=== PATIENT | male | born 1955 | race Caucasian/White ===

== ENCOUNTER 2023-02-13 19:51 | Inpatient (IN) | payer MEDICARE, BC ==
[2023-02-13] MEDS ORDERED: NOREPINEPHRINE 8 MG/250 ML-D5W 250 ML ONE ×2 (20:06→20:09)
[2023-02-13] MEDS ORDERED: fentaNYL 50 mcg/mL 1 mL Vial ONE (20:26)
[2023-02-13 20:27] LABS: Analyzer IN Cardio ER; Base Excess (BEa) -19.3 mEq/L (-2.0 to +3.0); CO2 Tension 59.4 mmHg (35.0-45.0); Calcium, Ionized (arterial) 0.98 mmol/L (1.12-1.30); Carboxyhemoglobin (COHb) 0.2 gm% (0.0-3.0); Hemoglobin (Hb) 9.6 g/dL (14.0-18.0); O2 Tension (PaO2), arterial 446.1 mmHg (> 80.0); Potassium - ABG Lab 3.89 mmol/L (3.70-5.30)
[2023-02-13 20:29] LABS: Actual Bicarbonate (HCO3a) 12.4 mEq/L (22-28); Puncture Site LBA; pH, Arterial 6.94 (7.35-7.45)
[2023-02-13 20:33] LABS: ALT (SGPT) 107 U/L (8-55); AST (SGOT) 119 U/L (5-34); Albumin 2.5 g/dL (3.4-4.8); Alkaline Phosphatase 175 U/L (40-110); Anion Gap 35 mmol/L (10-20); BUN (Urea Nitrogen) 28 mg/dL (8.4-25.7); Bilirubin, Total 0.2 mg/dL (0.2-1.2); Calc. Creatinine Clearance 0 mL/min (70-130); Carbon Dioxide 13 mmol/L (23-31); Chloride 97 mmol/L (98-107); Estimated GFR 32; Globulin 1.8 g/dL (2.4-3.5); Glucose 287 mg/dL (80-115); Potassium 4.1 mmol/L (3.5-5.1); Protein, Total 4.3 g/dL (5.8-8.1); Sodium 141 mmol/L (136-145)
[2023-02-13] MEDS ORDERED: Propofol 1,000 MG/100 ML VIAL IV ONE ×2 (20:34→20:35)
[2023-02-13] MEDS ORDERED: Vecuronium 10 MG VIAL ONE (20:44)
[2023-02-13] MEDS ORDERED: Fentanyl CADD 100 ML IV SCH ×2 (20:45→23:15)
[2023-02-13 20:46] LABS: Hemoglobin 9.8 g/dL (14.0-18.0); Mean Corpuscular HGB CONC 32.7 g/dL (32.0-36.0); Mean Corpuscular Hemoglobin 39.1 pg (27.0-31.0); RBC Distribution Width 15.5 % (11.5-14.5); White Blood Cell (WBC) Count 4.3 10x3/uL (4.8-10.8)
[2023-02-13] MEDS ORDERED: Sterile Water 10 ML ONE (20:46)
[2023-02-13] MEDS ORDERED: Fosphenytoin Sodium 1,500 MG in Sodium Chloride 0.9% 100 ML IVPB SCH (21:00)
[2023-02-13 21:06] LABS: Bilirubin Negative (Negative); Blood, Urine Negative (Negative); Clarity Clear (Clear); Glucose, Urine (Dipstick) Normal (Negative); Ketone, Urine Negative (Negative); Leukocyte Negative Leu/uL (Negative); Nitrite Negative (Negative); Protein, Urine (Dipstick) 20 mg/dL (Neg-Trace); Urobilinogen Normal mg/dL (Less than 2); pH, Urine 6.5 (5.0-9.0)
[2023-02-13 21:18] LABS: Anisocytosis SLIGHT = 6-15 cells (100X) (0-5/hpf); Band 1 % (5-11); Eosinophils 2 % (0-10); Lymphocytes 44 % (21-51); MDiff Complete? YES; Macrocytosis MODERATE=16-30 cells (100X) (0-5/hpf); Mean Platelet Volume 9.8 fL (7.4-10.4); Monocytes 5 % (0-10); Neutrophil 48 % (42-75); Nucleated RBC 8 % (0); Platelet Count 97 10x3/uL (130-400); Platelet Morphology Comment Appears Decreased; Polychromasia MODERATE = 3-4 cells (100X) (0-2/hpf); Stomatocytes SLIGHT = 2-5 cells (100X) (0-1/hpf); Target Cells SLIGHT = 2-5 cells (100X) (0-1/hpf)
[2023-02-13 21:34] LABS: Acetaminophen Less than 10.0 mcg/mL (10.0-30.0); Alcohol Less than 10 mg/dL (Less than 10); Salicylate Less than 8.0 mg/dL (15.0-30.0)
[2023-02-13] MEDS ORDERED: Sodium Bicarb 50 MEQ/50 ML VIAL ONE (22:35)
[2023-02-13] MEDS ORDERED: Electrolyte Replacement Protocol 1 EACH IVPB SCH (23:04)
[2023-02-13] MEDS ORDERED: NOREPINEPHRINE 8 MG/250 ML-D5W 250 ML IVPB PRN (23:04)
[2023-02-13 23:06] LABS: SARS-CoV-2 NAA Rapid Test Not Detected (NotDetected)
[2023-02-13 23:10] LABS: Troponin I 1.255 ng/mL (< 0.028)
[2023-02-13] MEDS ORDERED: Propofol 1,000 MG/100 ML VIAL IV PRN (23:15)
[2023-02-13] MEDS ORDERED: Fentanyl BOLUS 250 ML IVPB PRN (23:15)
[2023-02-13] MEDS ORDERED: Dextrose 5 %-0.45 % NaCl 1,000 ML IV SCH (23:15)
[2023-02-13] MEDS ORDERED: Ventilator Sedation Protocol 1 EACH FS SCH (23:15)
[2023-02-13] MEDS ORDERED: DISCONTINUE PREVIOUS NARCOTIC PAIN MEDICATIONS AND BENZODIAZEPINES FS SCH (23:15)
[2023-02-13] MEDS ORDERED: Dextrose 50% Abboject 50 ML SYRINGE IVP PRN (23:15)
[2023-02-13] MEDS ORDERED: Dextrose 5% in Water 1,000 ML IV PRN (23:15)
[2023-02-13] MEDS ORDERED: Propofol BOLUS 1,000 MG/100 ML VIAL IV PRN (23:15)
[2023-02-13 23:30] LABS: Hemoglobin A1c 4.9 % (4.0-6.0)
[2023-02-13] MEDS ORDERED: Heparin 10,000 UNITS/ 10 ML VIAL SLOW IVP SCH (23:30)
[2023-02-13] MEDS ORDERED: Heparin 25,000 units/D5W 500 ML IVPB SCH (23:30)
[2023-02-13 23:32] LABS: INR-International Normal Ratio 1.4; Prothrombin Time 17.4 sec (12.0-14.7)
[2023-02-13 23:33] LABS: PTT 33.6 sec (22.9-36.1)
[2023-02-14 00:09] LABS: Hemoglobin 11.1 g/dL (14.0-18.0); Platelet Count 118 10x3/uL (130-400)
[2023-02-14 00:26] LABS: Lactic Acid 7.3 mmol/L (0.5-2.2)
[2023-02-14] MEDS: HumaLOG 300 UNITS/3 ML VIAL SC PRN ×2 (00:46→06:28)
[2023-02-14 00:50] VITALS: BMI 30.4
[2023-02-14 00:55] LABS: Amphetamine Not Detected (NotDetected); Barbiturates Screen Not Detected (NotDetected); Benzodiazepine Screen Not Detected (NotDetected); Cocaine Metabolite Screen Not Detected (NotDetected); Methadone Not Detected (NotDetected); Methamphetamine Not Detected (NotDetected); Opiate Screen Not Detected (NotDetected); Oxycodone Screen Not Detected (NotDetected); Phencyclidine (PCP) Not Detected (NotDetected); THC/Cannabinoid Screen Not Detected (NotDetected); Tricyclic Screen Not Detected (NotDetected)
[2023-02-14] MEDS: Lactated Ringer's 1,000 ML IV SCH ×2 (02:05→18:32)
[2023-02-14 03:41] LABS: Hemoglobin 11.3 g/dL (14.0-18.0); Mean Corpuscular HGB CONC 32.7 g/dL (32.0-36.0); Mean Corpuscular Hemoglobin 38.3 pg (27.0-31.0); Mean Platelet Volume 8.8 fL (7.4-10.4); Platelet Count 136 10x3/uL (130-400); RBC Distribution Width 15.6 % (11.5-14.5); Red Blood Cell (RBC) Count 2.95 mill/uL (4.70-6.10); White Blood Cell (WBC) Count 7.8 10x3/uL (4.8-10.8)
[2023-02-14 04:00] LABS: Lactic Acid 9.4 mmol/L (0.5-2.2)
[2023-02-14 04:05] LABS: Anisocytosis SLIGHT = 6-15 cells (100X) (0-5/hpf); Band 4 % (5-11); Large Platelets SLIGHT; Lymphocytes 12 % (21-51); MDiff Complete? YES; Macrocytosis MODERATE=16-30 cells (100X) (0-5/hpf); Monocytes 5 % (0-10); Neutrophil 79 % (42-75); Nucleated RBC 2 % (0); Platelet Clumps SLIGHT; Platelet Morphology Comment Appears Adequate; Polychromasia MODERATE = 3-4 cells (100X) (0-2/hpf); Target Cells SLIGHT = 2-5 cells (100X) (0-1/hpf)
[2023-02-14 04:06] LABS: ALT (SGPT) 190 U/L (8-55); AST (SGOT) 268 U/L (5-34); Albumin 2.6 g/dL (3.4-4.8); Alkaline Phosphatase 241 U/L (40-110); Anion Gap 21 mmol/L (10-20); BUN (Urea Nitrogen) 33 mg/dL (8.4-25.7); Bilirubin, Total 0.7 mg/dL (0.2-1.2); Calc. Creatinine Clearance 32 mL/min (70-130); Calcium 6.9 mg/dL (7.8-10.44); Carbon Dioxide 22 mmol/L (23-31); Chloride 101 mmol/L (98-107); Estimated GFR 25; Glucose 222 mg/dL (80-115); Potassium 3.4 mmol/L (3.5-5.1); Protein, Total 4.6 g/dL (5.8-8.1); Sodium 141 mmol/L (136-145)
[2023-02-14 04:12] LABS: Troponin I 4.165 ng/mL (< 0.028)
[2023-02-14] MEDS ORDERED: Calcium Gluc 4.6 MEQ/10 ML (100 MG/ML) SLOW IVP ONE (04:13)
[2023-02-14] MEDS ORDERED: CALCIUM GLUC 1 GM/NS 50 ML 1 GM in Premix Bag 1 BAG IVPB SCH (04:30)
[2023-02-14 04:40] LABS: Magnesium 1.3 mg/dL (1.6-2.6); Phosphorus 6.3 mg/dL (2.3-4.7)
[2023-02-14] MEDS ORDERED: Electrolyte Replacement Protocol 1 EACH IVPB SCH (04:45)
[2023-02-14] MEDS: Albumin 25% 25 GM/100 ML BOT IVPB SCH ×4 (06:27→23:58)
[2023-02-14] MEDS ORDERED: Magnesium 2 GM/50 ML(in water) 2 GM in Premix Bag 1 BAG IVPB SCH (06:30)
[2023-02-14 07:03] LABS: PTT Greater than 250.0 sec (22.9-36.1)
[2023-02-14 07:19] LABS: Actual Bicarbonate (HCO3a) 21.2 mEq/L (22-28); Base Excess (BEa) -5.2 mEq/L (-2.0 to +3.0); Calcium, Ionized (arterial) 0.95 mmol/L (1.12-1.30); Carboxyhemoglobin (COHb) 1.1 gm% (0.0-3.0); Hemoglobin (Hb) 12.6 g/dL (14.0-18.0); Potassium - ABG Lab 3.54 mmol/L (3.70-5.30); pH, Arterial 7.29 (7.35-7.45)
[2023-02-14 07:38] LABS: Puncture Site LRA
[2023-02-14] MEDS ORDERED: Vancomycin 1 GM in Premix Bag 1 BAG IVPB SCH (09:00)
[2023-02-14] MEDS ORDERED: Vancomycin Dose by Levels Sliding Scale (Wt 71-99) FS SCH (09:30)
[2023-02-14] MEDS: levETIRAcetam 500 MG/5 ML VIAL SLOW IVP SCH ×2 (10:14→21:44)
[2023-02-14] MEDS: Pantoprazole 40 MG VIAL IVP SCH (10:15)
[2023-02-14] MEDS: Cefepime 1 GM in Sodium Chloride 0.9% 100 ML IVPB SCH ×2 (10:15→21:43)
[2023-02-14] MEDS ORDERED: Vancomycin 1.5 GRAM/300 ML BAG 1.5 GM in Premix Bag 1 BAG IVPB SCH (10:30)
[2023-02-14 11:25] LABS: PTT Greater than 250.0 sec (22.9-36.1)
[2023-02-14] MEDS: Acetaminophen 650 MG Suppository PR PRN (15:58)
[2023-02-14] MEDS: Artificial Tear Sol 15 ML BOT EA EYE PRN (23:53)
[2023-02-15 04:43] LABS: INR-International Normal Ratio 1.7; Prothrombin Time 20.6 sec (12.0-14.7)
[2023-02-15 04:44] LABS: PTT 41.8 sec (22.9-36.1)
[2023-02-15 04:53] LABS: ALT (SGPT) 90 U/L (8-55); AST (SGOT) 138 U/L (5-34); Albumin 3.6 g/dL (3.4-4.8); Alkaline Phosphatase 92 U/L (40-110); Anion Gap 19 mmol/L (10-20); BUN (Urea Nitrogen) 45 mg/dL (8.4-25.7); Bilirubin, Total 0.7 mg/dL (0.2-1.2); Calc. Creatinine Clearance 23 mL/min (70-130); Calcium 7.1 mg/dL (7.8-10.44); Carbon Dioxide 24 mmol/L (23-31); Chloride 100 mmol/L (98-107); Estimated GFR 17; Globulin 1.2 g/dL (2.4-3.5); Glucose 109 mg/dL (80-115); Potassium 4.1 mmol/L (3.5-5.1); Protein, Total 4.8 g/dL (5.8-8.1); Sodium 139 mmol/L (136-145)
[2023-02-15] MEDS: Lactated Ringer's 1,000 ML IV SCH ×3 (05:06→23:38)
[2023-02-15 05:22] LABS: Band 38 % (5-11); Hemoglobin 6.8 g/dL (14.0-18.0); Lymphocytes 15 % (21-51); MDiff Complete? YES; Macrocytosis MODERATE=16-30 cells (100X) (0-5/hpf); Mean Corpuscular HGB CONC 33.6 g/dL (32.0-36.0); Mean Corpuscular Hemoglobin 38.3 pg (27.0-31.0); Mean Platelet Volume 9.3 fL (7.4-10.4); Metamyelocyte 3 % (0-0); Monocytes 1 % (0-10); Myelocyte 1 % (0-0); Neutrophil 42 % (42-75); Nucleated RBC 8 % (0); Platelet Count 61 10x3/uL (130-400); Platelet Morphology Comment Appears Decreased; RBC Distribution Width 15.9 % (11.5-14.5); Red Blood Cell (RBC) Count 1.76 mill/uL (4.70-6.10); White Blood Cell (WBC) Count 3.4 10x3/uL (4.8-10.8)
[2023-02-15] MEDS: Artificial Tear Sol 15 ML BOT EA EYE PRN ×4 (08:00→14:00)
[2023-02-15 08:29] LABS: INR-International Normal Ratio 1.8; Prothrombin Time 21.2 sec (12.0-14.7)
[2023-02-15 08:30] LABS: PTT 40.2 sec (22.9-36.1)
[2023-02-15 09:42] LABS: Hemoglobin 6.8 g/dL (14.0-18.0); Mean Corpuscular HGB CONC 33.8 g/dL (32.0-36.0); Mean Corpuscular Hemoglobin 38.8 pg (27.0-31.0); Mean Platelet Volume 9.5 fL (7.4-10.4); Platelet Count 55 10x3/uL (130-400); RBC Distribution Width 16.1 % (11.5-14.5); Red Blood Cell (RBC) Count 1.74 mill/uL (4.70-6.10); White Blood Cell (WBC) Count 3.9 10x3/uL (4.8-10.8)
[2023-02-15] MEDS: levETIRAcetam 500 MG/5 ML VIAL SLOW IVP SCH ×2 (09:43→20:31)
[2023-02-15] MEDS: Acetaminophen 325 MG TAB PO PRN ×2 (09:44→17:41)
[2023-02-15] MEDS: Pantoprazole 40 MG VIAL IVP SCH (09:51)
[2023-02-15] MEDS: Cefepime 1 GM in Sodium Chloride 0.9% 100 ML IVPB SCH (09:55)
[2023-02-15 09:58] LABS: Vancomycin, Random 18.5 ug/mL (See Comment)
[2023-02-15] MEDS ORDERED: Vancomycin HCl 500 MG in Sodium Chloride 0.9% 100 ML IV SCH (10:30)
[2023-02-15] MEDS ORDERED: Calcium Chloride 13.6 MEQ in Sodium Chloride 0.9% 100 ML IVPB SCH (10:30)
[2023-02-15 10:33] LABS: Band 12 % (5-11); Eosinophils 1 % (0-10); Hypochromia MODERATE=16-30 cells (100X) (0-5/hpf); Lymphocytes 8 % (21-51); MDiff Complete? YES; Macrocytosis MODERATE=16-30 cells (100X) (0-5/hpf); Monocytes 1 % (0-10); Neutrophil 78 % (42-75); Nucleated RBC 3 % (0); Pappenheimer Bodies SLIGHT = 1-2 cells (100X) (None Seen); Platelet Morphology Comment Appears Decreased
[2023-02-15 13:52] LABS: Actual Bicarbonate (HCO3v) 23 mEq/L (22-28); Base Excess 0.5 mEq/L (-2.0 to +3.0); Calcium, Ionized (venous) 0.96 mmol/L (1.16-1.32); Chloride (VBG) 100 mmol/L (98-106); Hemoglobin (Hb) 8.4 g/dL (12.6-17.4); Potassium (VBG) 4.03 mmol/L (3.70-5.30); Sodium 133.1 mmol/L (133-146); pH (venous) 7.51 (7.32-7.43)
[2023-02-15 23:50] LABS: Hemoglobin 8.1 g/dL (14.0-18.0); Platelet Count 45 10x3/uL (130-400)
[2023-02-16 04:36] LABS: Hemoglobin 7.8 g/dL (14.0-18.0); Mean Corpuscular Hemoglobin 36.7 pg (27.0-31.0); Mean Platelet Volume 10.2 fL (7.4-10.4); Platelet Count 54 10x3/uL (130-400); RBC Distribution Width 19.3 % (11.5-14.5); Red Blood Cell (RBC) Count 2.14 mill/uL (4.70-6.10)
[2023-02-16] MEDS: Acetaminophen 650 MG Suppository PR PRN (04:36)
[2023-02-16 04:44] LABS: INR-International Normal Ratio 1.4; PTT 35.4 sec (22.9-36.1); Prothrombin Time 18.1 sec (12.0-14.7)
[2023-02-16 04:53] LABS: ALT (SGPT) 83 U/L (8-55); AST (SGOT) 164 U/L (5-34); Albumin 3.1 g/dL (3.4-4.8); Alkaline Phosphatase 100 U/L (40-110); Anion Gap 17 mmol/L (10-20); BUN (Urea Nitrogen) 56 mg/dL (8.4-25.7); Bilirubin, Total 1.1 mg/dL (0.2-1.2); Calc. Creatinine Clearance 20 mL/min (70-130); Calcium 7.4 mg/dL (7.8-10.44); Carbon Dioxide 24 mmol/L (23-31); Chloride 102 mmol/L (98-107); Estimated GFR 14; Globulin 1.6 g/dL (2.4-3.5); Glucose 108 mg/dL (80-115); Potassium 4.1 mmol/L (3.5-5.1); Protein, Total 4.7 g/dL (5.8-8.1); Sodium 139 mmol/L (136-145)
[2023-02-16 05:09] LABS: Anisocytosis SLIGHT = 6-15 cells (100X) (0-5/hpf); Band 18 % (5-11); Lymphocytes 7 % (21-51); MDiff Complete? YES; Monocytes 3 % (0-10); Neutrophil 72 % (42-75); Nucleated RBC 14 % (0); Platelet Morphology Comment Appears Decreased; Polychromasia MODERATE = 3-4 cells (100X) (0-2/hpf); Stomatocytes SLIGHT = 2-5 cells (100X) (0-1/hpf); Target Cells SLIGHT = 2-5 cells (100X) (0-1/hpf); Tear Drops SLIGHT = 2-5 cells (100X) (0-1/hpf); White Blood Cell (WBC) Count 5.1 10x3/uL (4.8-10.8)
[2023-02-16] MEDS: Morphine 2 MG/ML VIAL SLOW IVP PRN ×8 (05:47→23:19)
[2023-02-16] MEDS: Lorazepam 2 MG/ML VIAL SLOW IVP PRN ×7 (06:13→23:19)
[2023-02-16] MEDS: Lactated Ringer's 1,000 ML IV SCH ×2 (07:00→20:40)
[2023-02-16] MEDS ORDERED: Calcium Chloride 13.6 MEQ in Sodium Chloride 0.9% 100 ML IVPB SCH (09:00)
[2023-02-16] MEDS: levETIRAcetam 500 MG/5 ML VIAL SLOW IVP SCH ×2 (09:41→20:45)
[2023-02-16] MEDS: Pantoprazole 40 MG VIAL IVP SCH (09:42)
[2023-02-16] MEDS ORDERED: Cefepime 0.5 GM, Admixture Fee 1 EACH in Sodium Chloride 0.9% 100 ML IVPB SCH (11:00)
[2023-02-16] MEDS ORDERED: Scopolamine 1.5 mg/72 hour Patch TOP SCH (18:30)
[2023-02-17] MEDS: Morphine 2 MG/ML VIAL SLOW IVP PRN ×17 (01:32→23:12)
[2023-02-17] MEDS: Lorazepam 2 MG/ML VIAL SLOW IVP PRN ×17 (01:32→23:12)
[2023-02-17] MEDS: Atropine Sulfate 1% Ophth Soln 5 ml Bottle PO PRN ×5 (02:33→21:18)
[2023-02-17] MEDS: Lactated Ringer's 1,000 ML IV SCH ×2 (07:37→21:43)
[2023-02-17] MEDS: Pantoprazole 40 MG VIAL IVP SCH (07:55)
[2023-02-17] MEDS: levETIRAcetam 500 MG/5 ML VIAL SLOW IVP SCH ×2 (08:09→20:12)
[2023-02-17 10:31] LABS: O2 Tension (PaO2), arterial 54.1 mmHg (> 80.0)
[2023-02-17 20:01] VITALS: BP 131/87; TEMP 98.3
[2023-02-18] MEDS: Morphine 2 MG/ML VIAL SLOW IVP PRN ×7 (00:11→06:09)
[2023-02-18] MEDS: Lorazepam 2 MG/ML VIAL SLOW IVP PRN ×7 (00:11→06:09)
[2023-02-18] MEDS: Atropine Sulfate 1% Ophth Soln 5 ml Bottle PO PRN (04:22)
== END 2023-02-18 06:24 | disposition expired ==
LOC: ERS 19:51 → CCU 21:46 → MSONC 02-16 14:29
PROVIDERS: ADMIT Student in an Organized Health Care Education/Training Program; ATTEND Internal Medicine
PROC: 4A133R1 Monitoring of Arterial Saturation, Peripheral, Percutaneous Approach (ICD-10-PCS; principal; 2023-02-13)
PROC: 30233N1 Transfusion of Nonautologous Red Blood Cells into Peripheral Vein, Percutaneous Approach (ICD-10-PCS; 2023-02-13)
PROC: 0DH67UZ Insertion of Feeding Device into Stomach, Via Natural or Artificial Opening (ICD-10-PCS; 2023-02-13)
PROC: 3E0G76Z Introduction of Nutritional Substance into Upper GI, Via Natural or Artificial Opening (ICD-10-PCS; 2023-02-13)
PROC: 02HV33Z Insertion of Infusion Device into Superior Vena Cava, Percutaneous Approach (ICD-10-PCS; 2023-02-13)
PROC: 3E043XZ Introduction of Vasopressor into Central Vein, Percutaneous Approach (ICD-10-PCS; 2023-02-13)
PROC: 5A1945Z Respiratory Ventilation, 24-96 Consecutive Hours (ICD-10-PCS; 2023-02-13)
DX: I46.9 Cardiac arrest, cause unspecified (principal); I26.09 Other pulmonary embolism with acute cor pulmonale; I21.A1 Myocardial infarction type 2; N17.0 Acute kidney failure with tubular necrosis; J96.02 Acute respiratory failure with hypercapnia; J93.9 Pneumothorax, unspecified; M84.48XA Pathological fracture, other site, initial encounter for fracture; D61.818 Other pancytopenia; E87.20 Acidosis, unspecified; C79.51 Secondary malignant neoplasm of bone; D62 Acute posthemorrhagic anemia; G93.1 Anoxic brain damage, not elsewhere classified; M62.82 Rhabdomyolysis; G93.49 Other encephalopathy; Z66 Do not resuscitate; Z51.5 Encounter for palliative care; R73.9 Hyperglycemia, unspecified; D63.1 Anemia in chronic kidney disease; R57.0 Cardiogenic shock; I48.0 Paroxysmal atrial fibrillation; N18.30 Chronic kidney disease, stage 3 unspecified; E83.51 Hypocalcemia; E55.9 Vitamin D deficiency, unspecified; E87.6 Hypokalemia; Z20.822 Contact with and (suspected) exposure to COVID-19; C50.922 Malignant neoplasm of unspecified site of left male breast; I12.9 Hypertensive chronic kidney disease with stage 1 through stage 4 chronic kidney disease, or unspecified chronic kidney disease; Z92.21 Personal history of antineoplastic chemotherapy; Z92.3 Personal history of irradiation; Z86.718 Personal history of other venous thrombosis and embolism; Z78.1 Physical restraint status; Z90.12 Acquired absence of left breast and nipple
CPT/HCPCS: 36415; 36416; 36430; 36556; 36600; 51702; 70450; 71045; 72125; 74018; 80053; 80202; 80306; 80307; 81003; 82550; 82805; 83036; 83605; 83735; 83880; 84100; 84443; 84484; 85025; 85379; 85610; 85730; 86850; 86900; 86901; 93005; 93306; 94002; 94003; 95816; 95819; 95957; 96365; 96366; 96368; 96375; C9113; J0613; J0692; J1644; J1815; J1953; J2060; J2272; J2704; J3010; J3370; J3475; J3490; J7120; P9016; P9047; Q2009